=== PATIENT | female | born 1990 | race Caucasian/White ===

== ENCOUNTER 2025-01-05 12:26 | Emergency (ER) | payer MEDICAID ==
[~2025-01-05] VITALS: Ht 165.1 cm; Wt 58.0 kg
[2025-01-05 12:34] VITALS: TEMP 37; O2SAT 100
[2025-01-05 12:53] LABS: BASOPHILS % 0.4 % (0.0-2.0); EOSINOPHILS % 1.6 % (0.0-5.0); HEMATOCRIT. 39.8 % (36.0-48.0); HEMOGLOBIN. 13.3 g/dL (12.0-16.0); LYMPHOCYTES % 19.5 % (20.0-50.0); MEAN PLATELET VOLUME 7.7 fl (7.4-10.4); MONOCYTES % 8.8 % (2.0-8.0); NEUTROPHILS % 69.7 % (40.0-76.0); PLATELET 288 x1000/uL (130-400); RED BLOOD CELL COUNT 4.16 mill/uL (4.2-5.4); RED CELL DISTRIBUTION WIDTH 13.8 % (11.6-14.6)
[2025-01-05 13:06] LABS: CREATININE 0.9 mg/dL (0.6-1.0); UREA NITROGEN BLOOD 8 mg/dL (9-23)
[2025-01-05 14:52] VITALS: BP 118/75; PULSE 59; RESP 16; O2SAT 99
== END 2025-01-05 14:54 | disposition home or self-care (01) ==
LOC: ER 12:26
DX: M79.662 Pain in left lower leg (principal); I73.9 Peripheral vascular disease, unspecified; D68.9 Coagulation defect, unspecified
CPT/HCPCS: 36415; 80048; 81025; 85025; 85379; 93971; 99284

== ENCOUNTER 2025-03-25 13:18 | Emergency (ER) | payer MEDICAID ==
[~2025-03-25] VITALS: Ht 165.1 cm; Wt 62.0 kg
[2025-03-25 13:35] VITALS: O2SAT 100
[2025-03-25] MEDS ORDERED: FLUORESCEIN SODIUM 1MG/STRIP LEFTEYE ONE (15:45)
[2025-03-25] MEDS ORDERED: TETRACAINE 0.5% OPHTH DROPS 4ML BOTHEYE ONE (15:45)
[2025-03-25] MEDS ORDERED: ERYT1OIN6 LEFTEYE (17:00)
[2025-03-25 17:19] VITALS: BP 106/77; PULSE 62; RESP 18; TEMP 36.7; O2SAT 100
== END 2025-03-25 17:20 | disposition home or self-care (01) ==
LOC: ER 13:18
DX: S05.02XA Injury of conjunctiva and corneal abrasion without foreign body, left eye, initial encounter (principal); F41.9 Anxiety disorder, unspecified; F32.A Depression, unspecified; Z98.890 Other specified postprocedural states; X58.XXXA Exposure to other specified factors, initial encounter; Y93.89 Activity, other specified; Y92.89 Other specified places as the place of occurrence of the external cause; Y99.8 Other external cause status
CPT/HCPCS: 99283